=== PATIENT | female | born 1955 | race Caucasian/White ===

== ENCOUNTER 2024-08-27 20:22 | Emergency (ER) | payer MEDICARE, OTHER ==
[~2024-08-27] VITALS: Ht 160 cm; Wt 45.4 kg
[2024-08-27 21:08] LABS: BASOPHILS PERCENT AUTO 0 % (0-2); EOSINOPHILS ABSOLUTE AUTO 0.09 K/mm3 (0.00-0.68); EOSINOPHILS PERCENT AUTO 2 % (0-6); Hematocrit 32.1 % (33.0-51.0); IMMATURE GRAN ABSOLUTE AUTO 0.01 K/mm3 (0.00-0.10); IMMATURE GRAN PERCENT AUTO 0 % (0-1); LYMPHOCYTES ABSOLUTE AUTO 0.94 K/mm3 (0.84-5.20); LYMPHOCYTES PERCENT AUTO 22 % (21-46); MONOCYTES ABSOLUTE AUTO 0.35 K/mm3 (0.16-1.47); MONOCYTES PERCENT AUTO 8 % (4-13); Mean Corpuscular HGB 32.4 pg (26.0-34.0); Mean Corpuscular HGB Conc 34.3 g/dL (31.5-36.5); Mean Corpuscular Volume 94 fL (80-100); Mean Platelet Volume 8.8 fL (9.1-12.4); NEUTROPHILS PERCENT AUTO 67 % (41-73); Platelet Count 269 K/mm3 (150-400); RDW Standard Deviation 45.3 fL (35.1-46.3); White Blood Cell Count 4.19 K/mm3 (4.00-11.30)
[2024-08-27 21:12] LABS: Source, Urine Straight Cath
[2024-08-27 21:24] LABS: Appearance, Urine Clear (Clear); Bilirubin, Urine Neg (Neg); Blood, Urine Neg (Neg); Color, Urine Yellow (P-Yellow); Glucose Qualitative, Urine Neg (Neg); Ketones, Urine Neg (Neg); Leukocyte Esterase, Urine Neg (Neg); Nitrite, Urine Neg (Neg); Protein, Urine Neg (Neg); Urobilinogen, Urine NORM (Normal)
[2024-08-27 21:28] LABS: Albumin, Blood 3.9 g/dL (3.4-5.0); Albumin/Globulin Ratio 1.4 (0.8-1.8); Bilirubin, Total 0.3 mg/dL (0.1-1.0); Bun/Creatinine Ratio 11.2 (12.0-20.0); Calcium, Blood 8.8 mg/dL (8.5-10.1); Creatinine, Blood 0.98 mg/dL (0.40-1.00); Globulin, Blood 2.7 g/dL (2.2-4.0); Magnesium, Blood 1.9 mg/dL (1.6-2.4); Potassium, Blood 3.7 mmol/L (3.5-5.5); Total Protein, Blood 6.6 g/dL (6.4-8.2)
[2024-08-27] MEDS ORDERED: Lacosamide 50 MG Tablet PO ONE (21:55)
[2024-08-27] MEDS ORDERED: LamoTRIgine 25 MG Tab PO ONE (21:55)
[2024-08-27] MEDS ORDERED: LamoTRIgine 100 MG Tab PO ONE (21:55)
[2024-08-27] MEDS ORDERED: Ketorolac Tromethamine 15mg Vial IM ONE (23:15)
[2024-08-27] MEDS ORDERED: Ketorolac Tromethamine 15mg Vial IV ONE (23:30)
[2024-09-23] MEDS ORDERED: Acetaminophen650 M1 PO (13:29)
[2024-09-23] MEDS ORDERED: ACET500 PO (13:31)
[2024-09-23] MEDS ORDERED: Aspir 8181 MG PO (13:31)
[2024-09-23] MEDS ORDERED: Magic Bullet10 MG PR (13:32)
[2024-09-23] MEDS ORDERED: Calcium Carbon500 MG PO (13:33)
[2024-09-23] MEDS ORDERED: ZYRTEC10 M2 PO (13:34)
[2024-09-23] MEDS ORDERED: VIMPAT PO (13:35)
[2024-09-23] MEDS ORDERED: LAMO100 PO (13:36)
[2024-09-23] MEDS ORDERED: LOSA25 PO (13:37)
[2024-09-23] MEDS ORDERED: SENNA LAXATIVE8.6 MG PO (13:38)
== END 2024-08-28 00:25 ==
LOC: EDBD 20:22 → ER 20:22
PROVIDERS: Student in an Organized Health Care Education/Training Program
DX: R56.9 Unspecified convulsions (principal)
CPT/HCPCS: 70450; 80053; 81003; 83735; 85025; 93005; 93010; 96374; 99285-25; A9270; J1885

== ENCOUNTER → 2024-08-28 | Outpatient (CLI) | payer MEDICARE, OTHER ==
[~2024-08-28] MED LIST: ASPI81CH PO; Acetaminophen325 M1 PO; BISA10S PR; BUSP10 PO; CYMBALTA30 M1 PO; Calcium Carbon500 MG PO; Crestor40 MG PO; LACO50TA2 PO; LACT10SY PO; LAMO25 PO; LEVSOD25 PO; LOSA50 PO; ONFI10 MG PO; PANT40 PO; ZYRTEC10 M1 PO
[2024-08-28 16:01] LABS: Source, Urine Voided
[2024-08-28 17:33] LABS: Appearance, Urine Clear (Clear); Bilirubin, Urine Neg (Neg); Blood, Urine Neg (Neg); Glucose Qualitative, Urine Neg (Neg); Ketones, Urine Neg (Neg); Leukocyte Esterase, Urine Neg (Neg); Nitrite, Urine Neg (Neg); Protein, Urine Neg (Neg); Specific Gravity, Urine 1.005 (1.003-1.022); Urobilinogen, Urine NORM (Normal)
[2024-08-28 17:43] LABS: Color, Urine Pale Yellow (P-Yellow)
== END | disposition home or self-care (01) ==
LOC: LAB 15:59 → LAB SHORT 15:59
PROVIDERS: Student in an Organized Health Care Education/Training Program
DX: N39.0 Urinary tract infection, site not specified (principal)
CPT/HCPCS: 81003; 87086

== ENCOUNTER 2024-09-02 18:40 | Emergency (ER) | payer MEDICARE, OTHER ==
[~2024-09-02] VITALS: Ht 157.5 cm; Wt 49.9 kg
[2024-09-02] MEDS ORDERED: OLANZapine 10 MG Vial IM ONE (19:25)
[2024-09-02] MEDS ORDERED: BISA10S PR (19:33)
[2024-09-02] MEDS ORDERED: ASPI81CH PO (19:33)
[2024-09-02] MEDS ORDERED: Acetaminophen325 M1 PO (19:33)
[2024-09-02] MEDS ORDERED: BUSP10 PO (19:34)
[2024-09-02] MEDS ORDERED: Calcium Carbon500 MG PO (19:34)
[2024-09-02] MEDS ORDERED: ONFI10 MG PO (19:35)
[2024-09-02] MEDS ORDERED: ZYRTEC10 M1 PO (19:35)
[2024-09-02] MEDS ORDERED: CYMBALTA30 M1 PO (19:35)
[2024-09-02] MEDS ORDERED: LAMO25 PO (19:36)
[2024-09-02] MEDS ORDERED: LACO50TA2 PO (19:36)
[2024-09-02] MEDS ORDERED: LACT10SY PO (19:36)
[2024-09-02] MEDS ORDERED: Crestor40 MG PO (19:37)
[2024-09-02] MEDS ORDERED: PANT40 PO (19:37)
[2024-09-02] MEDS ORDERED: LEVSOD25 PO (19:37)
[2024-09-02] MEDS ORDERED: LOSA50 PO (19:37)
[2024-09-02 20:01] LABS: Source, Urine Clean Catch
[2024-09-02 20:07] LABS: Appearance, Urine Clear (Clear); Bilirubin, Urine Neg (Neg); Blood, Urine Neg (Neg); Color, Urine Yellow (P-Yellow); Glucose Qualitative, Urine Neg (Neg); Ketones, Urine 1+ (Neg); Leukocyte Esterase, Urine Neg (Neg); Nitrite, Urine Neg (Neg); Protein, Urine Neg (Neg); Urobilinogen, Urine NORM (Normal)
[2024-09-02 20:36] LABS: BASOPHILS PERCENT AUTO 0 % (0-2); EOSINOPHILS ABSOLUTE AUTO 0.04 K/mm3 (0.00-0.68); EOSINOPHILS PERCENT AUTO 1 % (0-6); Hematocrit 33.8 % (33.0-51.0); Hemoglobin 11.6 g/dL (11.5-16.0); IMMATURE GRAN ABSOLUTE AUTO 0.02 K/mm3 (0.00-0.10); IMMATURE GRAN PERCENT AUTO 0 % (0-1); LYMPHOCYTES ABSOLUTE AUTO 1.29 K/mm3 (0.84-5.20); LYMPHOCYTES PERCENT AUTO 26 % (21-46); MONOCYTES ABSOLUTE AUTO 0.32 K/mm3 (0.16-1.47); MONOCYTES PERCENT AUTO 7 % (4-13); Mean Corpuscular HGB Conc 34.3 g/dL (31.5-36.5); Mean Corpuscular Volume 96 fL (80-100); Mean Platelet Volume 9.3 fL (9.1-12.4); NEUTROPHILS ABSOLUTE AUTO 3.23 K/mm3 (1.96-9.15); NEUTROPHILS PERCENT AUTO 66 % (41-73); Platelet Count 271 K/mm3 (150-400); RDW Coefficient Variation 13.4 % (11.7-14.2); RDW Standard Deviation 47.9 fL (35.1-46.3); Red Blood Cell Count 3.52 M/mm3 (3.80-5.20)
[2024-09-02 21:05] LABS: Thyroxine (T4) 9.4 ug/dL (4.8-13.9)
[2024-09-02 21:11] LABS: Albumin, Blood 4.2 g/dL (3.4-5.0); Albumin/Globulin Ratio 1.4 (0.8-1.8); Bilirubin, Total 0.5 mg/dL (0.1-1.0); Bun/Creatinine Ratio 11.5 (12.0-20.0); Calcium, Blood 9.6 mg/dL (8.5-10.1); Creatinine, Blood 0.78 mg/dL (0.40-1.00); Globulin, Blood 2.9 g/dL (2.2-4.0); Potassium, Blood 4.4 mmol/L (3.5-5.5); Thyroid Stimulating Hormone 1.57 uIU/mL (0.360-4.800); Total Protein, Blood 7.1 g/dL (6.4-8.2)
[2024-09-03] MEDS ORDERED: OLANZapine 10 MG Tab PO ONE (08:05)
== END 2024-09-03 10:46 | disposition home or self-care (01) ==
LOC: ER 18:40
PROVIDERS: Student in an Organized Health Care Education/Training Program
DX: R41.82 Altered mental status, unspecified (principal); E87.1 Hypo-osmolality and hyponatremia; Z88.0 Allergy status to penicillin; G40.909 Epilepsy, unspecified, not intractable, without status epilepticus; E03.9 Hypothyroidism, unspecified; E78.5 Hyperlipidemia, unspecified
CPT/HCPCS: 70450; 71045; 80053; 81003; 82140; 84436; 84443; 85025; 93005; 93010; 96372; 99285-25; A9270

== ENCOUNTER 2024-09-03 12:27 | Observation (INO) | payer MEDICARE, OTHER ==
[~2024-09-03] VITALS: Ht 167.6 cm; Wt 56.7 kg
[2024-09-03] MEDS ORDERED: OLANZapine 5 MG Tab PO ONE ×2 (14:10→17:50)
[2024-09-03] MEDS ORDERED: Acetaminophen 325 MG TABLET PO PRN (23:35)
[2024-09-03] MEDS ORDERED: Melatonin 5 MG Tablet PO SCH (23:55)
[2024-09-03] MEDS ORDERED: LamoTRIgine 25 MG Tab PO SCH (23:55)
[2024-09-04] MEDS ORDERED: LamoTRIgine 100 MG Tab PO SCH ×2 (00:12→09:00)
[2024-09-04] MEDS ORDERED: Levothyroxine Sodium 0.025 MG Tab PO SCH (06:00)
[2024-09-04] MEDS ORDERED: DULoxetine HCL 30 MG Cap DR PO SCH (09:00)
[2024-09-04] MEDS ORDERED: Lacosamide 50 MG Tablet PO SCH ×2 (09:00→21:00)
[2024-09-04] MEDS ORDERED: LamoTRIgine 25 MG Tab PO SCH (09:00)
[2024-09-04] MEDS ORDERED: BusPIRone HCl 10 MG Tab PO SCH (09:00)
[2024-09-04] MEDS ORDERED: Acetaminophen 325 MG TABLET PO PRN (18:25)
[2024-09-04] MEDS ORDERED: FLU VACC TS2024-25(6MOS UP)/PF 45 MCG/0.5 ML SYRINGE IM SCH (18:25)
[2024-09-04] MEDS ORDERED: OLANZapine ODT 5 MG Tab MM PRN (18:30)
[2024-09-04 23:06] VITALS: BP 147/90
--- NOTE | 2024-09-05 01:44 | NUR ---
SHIFT SUMMARY/REPORT RECEIVED OVER THE PHONE FROM DEEP FAT COOK FRYEULOGIO KEYES @[id number]. PT ARRIVED TO [facility] RM#[id number] @2300 IN A W/C, TRANSPORTED BY TWO ER STAFF. PT IS 1-PERSON ASSIST FROM W/C TO HOSPITAL BED. PT DID NOT HAVE ANY BELONINGS WITH HER. PT WEARING HOSPITAL GOWN WHEN ARRIVED. ADMISSION ASSESSMENT COMPLETED BY CHARGE NURSE ARIANNA. SKIN ASSESSMENT COMPLETED WITH RIPENING ROOM ATTENDANT LISA AND THIS TALENT DIRECTOR. UNABLE TO COMPLETE HEALTH HX NOR MEDICATION RECONCILIATION DUE TO PT IS NOT ABLE TO REMEMBER AND PROVIDE HX. D/T PT IS A&O X1-2 TO PERSON AND SELF. PT STATES " I DON'T REMEMBER, [place], [place], PEOPLE ARE NICE," WHEN ASKING LOCATION/ORIENTATION QUESTION. PT IS ON RA, HAS NO IV ACCESS AT THIS TIME. PT DENIES PAIN AND DISCOMFORT DURING THIS SHIFT. EDUCATED BED MACHINE OPERATOR LIGHT. BED AT THE LOWEST POSITION. BED ALARM FOR SAFETY.
[2024-09-05 03:51] VITALS: BP 134/81
[2024-09-05 07:23] VITALS: BP 151/94
[2024-09-05] MEDS ORDERED: Enoxaparin 40 MG/0.4 ML SYR SC SCH (09:00)
--- NOTE | 2024-09-05 18:33 | NUR ---
SHIFT SUMMARY: PT A&O TO SELF. PT VERY FEARFUL AND ANXIOUS SEVERAL TIMES THIS SHIFT. MEDICATED PER EMAR WITH PO ZYPREXA WITH GOOD EFFECT. COGNITIVE EVAL COMPLETED WITH A SCORE OF 5/30. PT DAUGHTER CALLED ASKING TO SPEAK WITH STAFF/DOCTOR. ALLISON. 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 MEDICATED PER EMAR FOR SEIZURES. SB ASSIST IN ROOM FOR TRANSFERS. CALL LIGHT IN REACH. BED IN LOWEST POSITION.
[2024-09-05 19:33] VITALS: BP 143/79
[2024-09-06 01:28] LABS: Source, Urine Clean Catch
[2024-09-06 01:49] LABS: Appearance, Urine Clear (Clear); Bilirubin, Urine Neg (Neg); Blood, Urine Neg (Neg); Color, Urine Pale Yellow (P-Yellow); Glucose Qualitative, Urine Neg (Neg); Ketones, Urine Neg (Neg); Leukocyte Esterase, Urine 3+ (Neg); Nitrite, Urine Neg (Neg); Protein, Urine Neg (Neg); Urobilinogen, Urine NORM (Normal); pH, Urine 6.5 (5.0-8.0)
[2024-09-06 01:50] LABS: Amorphous Light (0-Heavy); Bacteria Few /hpf; Red Blood Cells, Urine Not Seen /hpf (0-2); Squamous Epithelial Cells Rare /hpf (Few)
--- NOTE | 2024-09-06 03:57 | NUR ---
SHIFT SUMMARY PT IS CONFUSED AND STATES "I'M SCARED, I DON'T KNOW WHERE I AM". LIGHTS AND DOOR OPEN DURING THE NIGHT HRS PER PT REQUEST. ADL'S COMPLETED BY THE PT DURING THE EVENING HRS. PT C/O BACK& NECK PAIN, PRN TYLENOL EFFECTIVE. NO ACUTE EVENTS DURING THIS SHIFT. BED ALARM FOR SAFETY, BED AT THE LOWEST POSITION. REASSURED FOR SAFETY, REORIENTED TO THE HOSPITAL ROOM AND THE STAFF MEMBERS. CONTINUING PT EDUCATION.
[2024-09-06 05:05] VITALS: BP 143/89
[2024-09-06 05:14] LABS: BASOPHILS PERCENT AUTO 0 % (0-2); EOSINOPHILS ABSOLUTE AUTO 0.03 K/mm3 (0.00-0.68); EOSINOPHILS PERCENT AUTO 1 % (0-6); Hematocrit 34.9 % (33.0-51.0); Hemoglobin 11.7 g/dL (11.5-16.0); IMMATURE GRAN ABSOLUTE AUTO 0.02 K/mm3 (0.00-0.10); IMMATURE GRAN PERCENT AUTO 0 % (0-1); LYMPHOCYTES ABSOLUTE AUTO 1.56 K/mm3 (0.84-5.20); LYMPHOCYTES PERCENT AUTO 32 % (21-46); MONOCYTES ABSOLUTE AUTO 0.53 K/mm3 (0.16-1.47); MONOCYTES PERCENT AUTO 11 % (4-13); Mean Corpuscular HGB 32.8 pg (26.0-34.0); Mean Corpuscular HGB Conc 33.5 g/dL (31.5-36.5); Mean Corpuscular Volume 98 fL (80-100); Mean Platelet Volume 8.5 fL (9.1-12.4); NEUTROPHILS ABSOLUTE AUTO 2.76 K/mm3 (1.96-9.15); NEUTROPHILS PERCENT AUTO 56 % (41-73); Platelet Count 268 K/mm3 (150-400); RDW Coefficient Variation 13.9 % (11.7-14.2); RDW Standard Deviation 49.4 fL (35.1-46.3); Red Blood Cell Count 3.57 M/mm3 (3.80-5.20)
[2024-09-06 05:43] LABS: Albumin, Blood 3.9 g/dL (3.4-5.0); Albumin/Globulin Ratio 1.4 (0.8-1.8); Bilirubin, Total 0.4 mg/dL (0.1-1.0); Bun/Creatinine Ratio 15.9 (12.0-20.0); Calcium, Blood 9.6 mg/dL (8.5-10.1); Creatinine, Blood 0.76 mg/dL (0.40-1.00); Globulin, Blood 2.8 g/dL (2.2-4.0); Potassium, Blood 4.1 mmol/L (3.5-5.5); Total Protein, Blood 6.7 g/dL (6.4-8.2)
[2024-09-06 07:25] VITALS: BP 150/85
[2024-09-06] MEDS ORDERED: Cephalexin Monohydrate 500 MG Cap PO SCH (15:00)
[2024-09-06 16:48] VITALS: BP 163/90
--- NOTE | 2024-09-06 17:56 | NUR ---
SHIFT SUMMARY; PT REMAINS ORIENTED TO SELF WITH AM ASSESSMENT. APPEARED TO HAVE MORE KNOWLEDGE OF LOCATION AND SITUATION THROUGHOUT SHIFT. PT INDEPENDENT IN ROOM AND HALLWAY THIS SHIFT. DR. COOPER CALLED THIS RN ON [facility] STATING DAUGHTER WAS UPSET PT WAS NOT RECEIVING HOME DOSE OF CLOBAZAM. ATTEMPTED TO CALL [facility] FOR PT SISTER NAME AND NUMBER. VOICEMAIL LEFT X2 WITH NO RETURN CALL AT THIS TIME. EEG ORDERED FOR EPILEPSY. DISSOLVABLE ZYPREXA GIVEN THIS SHIFT X1. CALL LIGHT IN REACH. BED IN LOWEST POSITION.
[2024-09-06 19:44] VITALS: BP 135/80
--- NOTE | 2024-09-07 04:29 | NUR ---
SHIFT SUMMARY PATIENT HAD NO ACUTE CHANGES. AXO X 2 AND INDEPENDENT IN ROOM/HALLWAY. NO IV ACCESS. DENIES CHEST PAIN, SOB, AND N/V. REPORTED BACK PAIN X ONE AND TYLENOL 650 MG GIVEN PER EMAR. HEATING PAD ALSO PROVIDED PER PATIENT REQUEST. VSS/AFEBRILE. COOPERATIVE WITH CARE. CALL LIGHT IN REACH. BED IN LOWEST POSITION. WILL CONTINUE TO MONITOR UNTIL DAY SHIFT NURSE ASSUMES CARE.
[2024-09-07 04:59] VITALS: BP 119/74
[2024-09-07 07:22] VITALS: BP 142/83
--- NOTE | 2024-09-07 12:15 | NUR ---
called [facility] and spoke with Laya about bringing in her home medication clobazam when she comes in to eval her to return, she was agreeable.
[2024-09-07] MEDS ORDERED: MELATONIN5 M1 PO (14:41)
[2024-09-07] MEDS ORDERED: ZYPREXA513 PO (14:43)
--- NOTE | 2024-09-07 15:00 | NUR ---
pt has been discharged back to [place], they sent a wagon driver to pick her up, no new meds to call in, she has all her belongings, left via wheelchair with record press tender in attendence.
--- NOTE | 2024-09-07 15:18 | NUR ---
pt has been accepted back at [facility], she had her EEG, left via wheelchair with audio/video technician to transport. no iv access, she has all her belongings.
--- NOTE | 2024-09-07 17:16 | NUR ---
pt up ad fanny in room, ambulated out in fischer, gait steady, she is a/ox 2-3, easily redirectable, pleasant and cooperative with care, follows commands well, lungs are clear in [place], a bit dim in bases, resp even and unlabored, on r/a, no cough noted, hrr, no edema noted, btx4, abd flat soft nontender voids without diff, skin c/w/d, maew, bijal, call light in reach.
[2024-09-23] MEDS ORDERED: Acetaminophen650 M1 PO (13:29)
[2024-09-23] MEDS ORDERED: ACET500 PO (13:31)
[2024-09-23] MEDS ORDERED: Aspir 8181 MG PO (13:31)
[2024-09-23] MEDS ORDERED: Magic Bullet10 MG PR (13:32)
[2024-09-23] MEDS ORDERED: Calcium Carbon500 MG PO (13:33)
[2024-09-23] MEDS ORDERED: ZYRTEC10 M2 PO (13:34)
[2024-09-23] MEDS ORDERED: VIMPAT PO (13:35)
[2024-09-23] MEDS ORDERED: LAMO100 PO (13:36)
[2024-09-23] MEDS ORDERED: PANT40 PO (13:37)
[2024-09-23] MEDS ORDERED: LOSA25 PO (13:37)
[2024-09-23] MEDS ORDERED: Crestor40 MG PO (13:37)
[2024-09-23] MEDS ORDERED: SENNA LAXATIVE8.6 MG PO (13:38)
== END 2024-09-07 15:20 | disposition home or self-care (01) ==
LOC: ER 12:27 → ERHOLD 12:28 → MEDS 09-04 12:28 → ER 09-04 12:28 → ERHOLD 09-04 12:28 → MEDS 09-04 23:01 → ERHOLD 09-04 23:01 → ENPENDDIS 09-07 12:59 → MEDS 09-07 15:20
PROVIDERS: Internal Medicine; ADMIT Student in an Organized Health Care Education/Training Program
DX: F03.918 Unspecified dementia, unspecified severity, with other behavioral disturbance (principal); E87.1 Hypo-osmolality and hyponatremia; N39.0 Urinary tract infection, site not specified; I10 Essential (primary) hypertension; E78.5 Hyperlipidemia, unspecified; E03.9 Hypothyroidism, unspecified; R73.03 Prediabetes; G40.909 Epilepsy, unspecified, not intractable, without status epilepticus; Z66 Do not resuscitate; Z88.0 Allergy status to penicillin; Z79.82 Long term (current) use of aspirin; Z79.890 Hormone replacement therapy; Z79.899 Other long term (current) drug therapy
CPT/HCPCS: 36415; 70551; 80053; 81001; 82947; 83930; 83935; 85025; 86592; 87086; 95819; 96372; 97129; 97130; 97165; 99285-25; A9270; G0378; J1650

== ENCOUNTER → 2024-09-25 | Outpatient (CLI) | payer MEDICARE, OTHER ==
[~2024-09-25] MED LIST changes: +ACET500 PO; +Acetaminophen650 M1 PO; +Aspir 8181 MG PO; +LAMO100 PO; +LOSA25 PO; +MELATONIN5 M1 PO; +Magic Bullet10 MG PR; +SENNA LAXATIVE8.6 MG PO; +VIMPAT PO; +ZYPREXA513 PO; +ZYRTEC10 M2 PO
[2024-09-25 15:37] LABS: Source, Urine Voided
[2024-09-25 16:51] LABS: Appearance, Urine Clear (Clear); Bilirubin, Urine Neg (Neg); Blood, Urine Neg (Neg); Color, Urine Yellow (P-Yellow); Glucose Qualitative, Urine Neg (Neg); Ketones, Urine 1+ (Neg); Leukocyte Esterase, Urine Neg (Neg); Nitrite, Urine Neg (Neg); Protein, Urine Neg (Neg); Urobilinogen, Urine NORM (Normal)
== END | disposition home or self-care (01) ==
LOC: LAB SHORT 15:35 → LAB 15:35
PROVIDERS: Student in an Organized Health Care Education/Training Program
DX: N39.0 Urinary tract infection, site not specified (principal)
CPT/HCPCS: 81003; 87086

== ENCOUNTER → 2025-01-31 | Outpatient (CLI) | payer OTHER ==
[2025-02-01 13:53] LABS: Source, Urine Clean Catch
[2025-02-01 15:34] LABS: Appearance, Urine Clear (Clear); Bilirubin, Urine Neg (Neg); Blood, Urine Neg (Neg); Glucose Qualitative, Urine Neg (Neg); Ketones, Urine Neg (Neg); Leukocyte Esterase, Urine Neg (Neg); Nitrite, Urine Neg (Neg); Protein, Urine Neg (Neg); Urobilinogen, Urine NORM (Normal)
[2025-02-01 15:41] LABS: Color, Urine Pale Yellow (P-Yellow)
== END ==
LOC: LAB SHORT 16:00 → LAB 16:00
PROVIDERS: Family Medicine
DX: N39.0 Urinary tract infection, site not specified (principal)
CPT/HCPCS: 81003; 87086

== ENCOUNTER 2025-03-24 15:43 | Emergency (ER) | payer MEDICARE, OTHER ==
[~2025-03-24] VITALS: Ht 157.5 cm; Wt 44.5 kg
[2025-03-24] MEDS ORDERED: Benzonatate 100 MG Cap PO ONE (16:30)
[2025-03-24] MEDS ORDERED: Dextromethorphan Polistirix 30 MG/5 ML 5ML Oral Syringe PO ONE (17:05)
[2025-03-24] MEDS ORDERED: Chlorpheniramine/Hydroc Polistir 5 ML UDC PO ONE (18:50)
== END 2025-03-24 20:37 | disposition home or self-care (01) ==
LOC: ER 15:43
DX: R05.9 Cough, unspecified (principal); E78.5 Hyperlipidemia, unspecified; I10 Essential (primary) hypertension; Z79.899 Other long term (current) drug therapy; Z79.82 Long term (current) use of aspirin; Z88.0 Allergy status to penicillin; Z88.5 Allergy status to narcotic agent
CPT/HCPCS: 71046; 99283-25; A9270

== ENCOUNTER 2025-04-05 21:10 | Emergency (ER) | payer MEDICARE, OTHER ==
[~2025-04-05] VITALS: Ht 162.6 cm; Wt 49.9 kg
[2025-04-05 21:45] LABS: BASOPHILS PERCENT AUTO 0 % (0-2); EOSINOPHILS PERCENT AUTO 2 % (0-6); Hematocrit 34.2 % (33.0-51.0); Hemoglobin 11.6 g/dL (11.5-16.0); IMMATURE GRAN ABSOLUTE AUTO 0.01 K/mm3 (0.00-0.10); IMMATURE GRAN PERCENT AUTO 0 % (0-1); LYMPHOCYTES ABSOLUTE AUTO 0.88 K/mm3 (0.84-5.20); LYMPHOCYTES PERCENT AUTO 17 % (21-46); MONOCYTES PERCENT AUTO 6 % (4-13); Mean Corpuscular HGB 32.2 pg (26.0-34.0); Mean Corpuscular HGB Conc 33.9 g/dL (31.5-36.5); Mean Corpuscular Volume 95 fL (80-100); Mean Platelet Volume 8.4 fL (9.1-12.4); NEUTROPHILS ABSOLUTE AUTO 3.84 K/mm3 (1.96-9.15); NEUTROPHILS PERCENT AUTO 75 % (41-73); Platelet Count 262 K/mm3 (150-400); RDW Coefficient Variation 14.7 % (11.7-14.2); RDW Standard Deviation 51.3 fL (35.1-46.3); White Blood Cell Count 5.13 K/mm3 (4.00-11.30)
[2025-04-05 22:07] LABS: Source, Urine Clean Catch
[2025-04-05 22:15] LABS: Alanine Aminotransfer (ALT/SGP 16 U/L (12-78); Albumin/Globulin Ratio 1.3 (0.8-1.8); Alk Phos 67 U/L (50-136); Anion Gap 14 mmol/L (3-11); Aspartate Aminotrans (AST/SGOT 14 U/L (12-37); Bilirubin, Total 0.2 mg/dL (0.1-1.0); Blood Urea Nitrogen 14 mg/dL (8-24); Bun/Creatinine Ratio 15.3 (12.0-20.0); CO2, Blood 23 mmol/L (21-32); Calcium, Blood 9.3 mg/dL (8.5-10.1); Chloride, Blood 97 mmol/L (98-108); Creatinine, Blood 0.92 mg/dL (0.40-1.00); Ethanol (Alcohol), Blood, Med <3 mg/dL; Glomerular Filtration Rate 67 (60-); Glucose, Blood 144 mg/dL (70-99); Potassium, Blood 3.3 mmol/L (3.5-5.5); Sodium, Blood 131 mmol/L (136-145)
[2025-04-05 22:15] LABS: Bilirubin, Urine Neg (Neg); Blood, Urine 1+ (Neg); Glucose Qualitative, Urine Neg (Neg); Ketones, Urine Neg (Neg); Leukocyte Esterase, Urine Neg (Neg); Nitrite, Urine Neg (Neg); Protein, Urine 3+ (Neg); Urobilinogen, Urine NORM (Normal)
[2025-04-05 22:30] LABS: U Amphetamine Screen Not Detected; U Barbituate Screen Not Detected; U Benzodiazapine Screen DETECTED; U Buprenorphine Screen Not Detected; U Cannabinoids Screen Not Detected; U Cocaine Screen Not Detected; U Methadone Screen Not Detected; U Methamphetamine Screen Not Detected; U Opiates Screen Not Detected; U Oxycodone Screen Not Detected; U Phencyclidine Screen Not Detected
[2025-04-05 22:31] LABS: Appearance, Urine Clear (Clear); Color, Urine Pale Yellow (P-Yellow)
[2025-04-05 22:32] LABS: Amorphous Light (0-Heavy); Bacteria Few /hpf; Red Blood Cells, Urine 0-2 /hpf (0-2); Squamous Epithelial Cells Few /hpf (Few); White Blood Cells, Urine 0-2 /hpf (0-5)
[2025-04-06] MEDS ORDERED: Acetaminophen 500 MG Tab PO ONE (00:50)
[2025-04-06] MEDS ORDERED: Ketorolac Tromethamine 15mg Vial IV ONE (02:50)
[2025-04-17] MEDS ORDERED: BENZ100A PO (20:58)
== END 2025-04-06 04:26 | disposition home or self-care (01) ==
LOC: ER 21:10
PROVIDERS: Student in an Organized Health Care Education/Training Program
DX: R56.9 Unspecified convulsions (principal); E78.5 Hyperlipidemia, unspecified; E03.9 Hypothyroidism, unspecified; I10 Essential (primary) hypertension; Z86.59 Personal history of other mental and behavioral disorders; Z79.899 Other long term (current) drug therapy; Z88.0 Allergy status to penicillin; Z88.5 Allergy status to narcotic agent
CPT/HCPCS: 70450; 80053; 80320; 81001; 82947; 85025; 93005; 93010; 96374; 99285-25; A9270; J1885

== ENCOUNTER 2025-06-22 18:00 | Emergency (ER) | payer MEDICARE, OTHER ==
[~2025-06-22] VITALS: Ht 162.6 cm; Wt 49.9 kg
[~2025-06-22 18:00] MED LIST changes: +BENZ100A PO
[2025-06-22 19:06] LABS: Source, Urine Voided
[2025-06-22 19:34] LABS: Bilirubin, Urine Neg (Neg); Color, Urine Yellow (P-Yellow); Glucose Qualitative, Urine Neg (Neg); Ketones, Urine 3+ (Neg); Leukocyte Esterase, Urine 1+ (Neg); Protein, Urine 1+ (Neg); Specific Gravity, Urine 1.020 (1.003-1.022); Urobilinogen, Urine NORM (Normal)
[2025-06-22] MEDS ORDERED: Trimethoprim/Sulfamethoxazole DS Tab PO ONE (20:10)
[2025-06-22] MEDS ORDERED: Seroquel Xr50 MG PO (21:26)
[2025-06-22] MEDS ORDERED: Bactrim Ds Tab1 EACH PO (21:26)
== END 2025-06-22 23:00 | disposition home or self-care (01) ==
LOC: ER 18:00
PROVIDERS: Emergency Medicine
DX: R45.1 Restlessness and agitation (principal); N39.0 Urinary tract infection, site not specified
CPT/HCPCS: 81001; 87086; 99285; A9270

== ENCOUNTER 2025-06-27 08:39 | Emergency (ER) | payer MEDICARE, OTHER ==
[~2025-06-27] VITALS: Ht 160 cm; Wt 47.6 kg
[~2025-06-27 08:39] MED LIST changes: +Bactrim Ds Tab1 EACH PO; +Seroquel Xr50 MG PO
[2025-06-27 10:08] LABS: BASOPHILS ABSOLUTE AUTO 0.01 K/mm3 (0.00-0.23); BASOPHILS PERCENT AUTO 0 % (0-2); EOSINOPHILS ABSOLUTE AUTO 0.10 K/mm3 (0.00-0.68); EOSINOPHILS PERCENT AUTO 2 % (0-6); Hematocrit 33.6 % (33.0-51.0); Hemoglobin 11.5 g/dL (11.5-16.0); IMMATURE GRAN ABSOLUTE AUTO 0.02 K/mm3 (0.00-0.10); IMMATURE GRAN PERCENT AUTO 0 % (0-1); LYMPHOCYTES ABSOLUTE AUTO 0.74 K/mm3 (0.84-5.20); LYMPHOCYTES PERCENT AUTO 13 % (21-46); MONOCYTES ABSOLUTE AUTO 0.35 K/mm3 (0.16-1.47); MONOCYTES PERCENT AUTO 6 % (4-13); Mean Corpuscular HGB Conc 34.2 g/dL (31.5-36.5); Mean Corpuscular Volume 94 fL (80-100); NEUTROPHILS ABSOLUTE AUTO 4.50 K/mm3 (1.96-9.15); NEUTROPHILS PERCENT AUTO 79 % (41-73); NRBC ABSOLUTE 0.00 K/mm3 (0.00-0.02); NRBC Auto 0.0 /100 WBC (0.0-0.2); Platelet Count 362 K/mm3 (150-400); RDW Coefficient Variation 12.4 % (11.7-14.2); RDW Standard Deviation 42.9 fL (35.1-46.3)
[2025-06-27 10:30] LABS: Alanine Aminotransfer (ALT/SGP 17.0 U/L (12-78); Albumin, Blood 3.4 g/dL (3.4-5.0); Albumin/Globulin Ratio 1.0 (0.8-1.8); Anion Gap 11.0 mmol/L (3-11); Aspartate Aminotrans (AST/SGOT 23.0 U/L (12-37); Bilirubin, Total 0.3 mg/dL (0.1-1.0); Blood Urea Nitrogen 9.0 mg/dL (8-24); CO2, Blood 24.0 mmol/L (21-32); Calcium, Blood 8.3 mg/dL (8.5-10.1); Chloride, Blood 98.0 mmol/L (98-108); Creatinine, Blood 0.78 mg/dL (0.40-1.00); Globulin, Blood 3.3 g/dL (2.2-4.0); Glucose, Blood 102.0 mg/dL (70-99); Magnesium, Blood 1.9 mg/dL (1.6-2.4); Phosphorus, Blood 2.1 mg/dL (2.5-4.9); Potassium, Blood 3.7 mmol/L (3.5-5.5); Sodium, Blood 129.0 mmol/L (136-145); Total Protein, Blood 6.7 g/dL (6.4-8.2)
== END 2025-06-27 14:43 | disposition home or self-care (01) ==
LOC: ER 08:39
PROVIDERS: Physician Assistant
DX: R45.6 Violent behavior (principal); F03.90 Unspecified dementia, unspecified severity, without behavioral disturbance, psychotic disturbance, mood disturbance, and anxiety; Z66 Do not resuscitate; Z88.0 Allergy status to penicillin; Z88.5 Allergy status to narcotic agent; Z79.82 Long term (current) use of aspirin; Z79.899 Other long term (current) drug therapy
CPT/HCPCS: 80053; 82140; 83735; 84100; 85025; A9270

== ENCOUNTER 2025-06-27 19:10 | Observation (INO) | payer MEDICARE, OTHER ==
[~2025-06-27] VITALS: Ht 157.5 cm; Wt 46.3 kg
[~2025-06-27 19:10] MED LIST changes: +LACOSAMIDE150 MG PO; -LAMO100 PO; -LAMO25 PO; +Lamictal200 MG PO; -VIMPAT PO
[2025-06-27] MEDS ORDERED: Bacitracin Zinc Oint 1GRAM UD Packet TOP ONE (21:00)
[2025-06-27 22:46] LABS: Source, Urine Clean Catch
[2025-06-27] MEDS ORDERED: Morphine Sulfate 20 MG/1ML 1 ML Oral Syringe SL ONE (22:55)
[2025-06-28] MEDS ORDERED: Ondansetron HCl 2 MG / ML 2ML Vial IV PRN (00:15)
[2025-06-28] MEDS ORDERED: Morphine Sulfate 20 MG/1ML 1 ML Oral Syringe PO PRN (00:50)
[2025-06-28 01:33] LABS: Bilirubin, Urine Neg (Neg); Color, Urine Yellow (P-Yellow); Glucose Qualitative, Urine Neg (Neg); Ketones, Urine 2+ (Neg); Leukocyte Esterase, Urine Neg (Neg); Protein, Urine Neg (Neg); Specific Gravity, Urine 1.010 (1.003-1.022); Urobilinogen, Urine NORM (Normal)
[2025-06-28 01:58] LABS: Red Blood Cells, Urine 0-2 /hpf (0-2); White Blood Cells, Urine 0-2 /hpf (0-5)
[2025-06-28 02:47] LABS: BASOPHILS ABSOLUTE AUTO 0.00 K/mm3 (0.00-0.23); BASOPHILS PERCENT AUTO 0 % (0-2); EOSINOPHILS ABSOLUTE AUTO 0.12 K/mm3 (0.00-0.68); EOSINOPHILS PERCENT AUTO 2 % (0-6); Hematocrit 35.6 % (33.0-51.0); Hemoglobin 12.0 g/dL (11.5-16.0); IMMATURE GRAN ABSOLUTE AUTO 0.02 K/mm3 (0.00-0.10); IMMATURE GRAN PERCENT AUTO 0 % (0-1); LYMPHOCYTES ABSOLUTE AUTO 1.32 K/mm3 (0.84-5.20); LYMPHOCYTES PERCENT AUTO 21 % (21-46); MONOCYTES ABSOLUTE AUTO 0.40 K/mm3 (0.16-1.47); MONOCYTES PERCENT AUTO 6 % (4-13); Mean Corpuscular HGB Conc 33.7 g/dL (31.5-36.5); Mean Corpuscular Volume 94 fL (80-100); NEUTROPHILS ABSOLUTE AUTO 4.48 K/mm3 (1.96-9.15); NEUTROPHILS PERCENT AUTO 71 % (41-73); NRBC ABSOLUTE 0.00 K/mm3 (0.00-0.02); NRBC Auto 0.0 /100 WBC (0.0-0.2); Platelet Count 395 K/mm3 (150-400); RDW Coefficient Variation 12.4 % (11.7-14.2); RDW Standard Deviation 43.7 fL (35.1-46.3)
[2025-06-28 03:15] VITALS: BP 134/94
[2025-06-28 03:18] LABS: Alanine Aminotransfer (ALT/SGP 18.0 U/L (12-78); Albumin, Blood 3.7 g/dL (3.4-5.0); Albumin/Globulin Ratio 1.0 (0.8-1.8); Anion Gap 12.0 mmol/L (3-11); Aspartate Aminotrans (AST/SGOT 26.0 U/L (12-37); Bilirubin, Total 0.3 mg/dL (0.1-1.0); Blood Urea Nitrogen 7.0 mg/dL (8-24); CO2, Blood 25.0 mmol/L (21-32); Calcium, Blood 8.8 mg/dL (8.5-10.1); Chloride, Blood 97.0 mmol/L (98-108); Creatinine, Blood 0.79 mg/dL (0.40-1.00); Globulin, Blood 3.7 g/dL (2.2-4.0); Glucose, Blood 81.0 mg/dL (70-99); Potassium, Blood 4.2 mmol/L (3.5-5.5); Sodium, Blood 130.0 mmol/L (136-145); Thyroid Stimulating Hormone 0.459 uIU/mL (0.360-4.800); Total Protein, Blood 7.4 g/dL (6.4-8.2)
[2025-06-28 05:24] VITALS: BP 140/84
--- NOTE | 2025-06-28 06:04 | NUR ---
SHIFT SUMMARY 69 YR F ADMITTED ON 06/27/25. DNR. PT ARRIVED TO MEDICAL FLOOR AT APPROX 0330. SHE HAS BEEN MEDICATED FOR PAIN AND ANXIETY AND IS RESTING COMFORTABLY IN BED. 1:1 SITTER FOR PT SAFETY. BED IN LOW POSITION AND CALL LIGHT IN REACH.
[2025-06-28 07:33] VITALS: BP 144/83
--- NOTE | 2025-06-28 09:42 | NUR ---
NOTE: SPOKE WITH PALLIATIVE CARE, THE DEPARTMENT SAID THEY WILL REVIEW CHART AND START ORDERS NECESSARY.
[2025-06-28] MEDS ORDERED: Morphine Sulfate 20 MG/1ML 1 ML Oral Syringe SL PRN (10:30)
--- NOTE | 2025-06-28 11:07 | NUR ---
NOTE: SPOKE WITH DAUGHTER, RUSS, ON THE PHONE AND PROVIDED AN UPDATE.
--- NOTE | 2025-06-28 13:38 | NUR ---
MET WITH PATIENT. SHE WAS ASLEEP BUT ROUSED TO VERBAL STIMULI. PATIENT IS ON HOSPICE WITH [facility]. DISCUSSED CASE WITH TIM FROM [facility]. DISCUSSED CASE WITH DR. SILVER, BSRN, AND SAV TIM. COMFORT CARE ORDERS PLACED. WILL CONTINUE TO PROVIDER SUPPORT.
--- NOTE | 2025-06-28 18:05 | NUR ---
SHIFT SUMMARY PT AOX1-2, SLEPT MOST OF THE SHIFT. MEDICATED PER THE EMAR FOR COMFORT. PT STATES "PAIN ALL OVER". 1:1 SITTER FOR SI. COMFORT CARE ORDERS IN PLACE. SI PRECAUTIONS IN PLACE. PT REPOSITIONS SELF IN BED. UP TO THE BSC WITH 1P ASSIST. PT REFUSED TO LET STAFF COMB HER HAIR AFTER MULTIPLE ATTEMPTS. PLANS IS TO FIND THE PT A NEW PLACEMENT OPTION. CALL LIGHT WITHIN REACH, BED LOCKED AND IN THE LOWEST POSITION. WILL REPORT TO ONCOMING NURSE.
--- NOTE | 2025-06-29 06:14 | NUR ---
SHIFT SUMMARY PT ALERT AND ORIENTED TIMES 1-2. PT ADMITTED FOR DEMENTIA WITH BEHAVIORAL DISTURBANCES. PT IS ON ROOM AIR. DOES NOT HAVE IV. PT IS ON COMFORT CARE. 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 PT IS INCONTINENT OF BOWEL. CM IS WORKING ON DISCHARGE PLAN. CALL LIGHT WITHIN REACH, RAILS TIMES 2, BED IN LOW POSITION.
[2025-06-29] MEDS ORDERED: CLOBAZAM 10MG TAB PO SCH (09:00)
[2025-06-29] MEDS ORDERED: ARTHRITIS PAIN150 GM TOP (09:16)
[2025-06-29] MEDS ORDERED: HYDHCL25 PO (09:17)
[2025-06-29] MEDS ORDERED: LACT10SY PO ×2 (09:19→09:20)
[2025-06-29] MEDS ORDERED: PAIN RELIEF PA1 EACH TOP (09:24)
[2025-06-29] MEDS ORDERED: Ativan1 MG PO (09:24)
[2025-06-29] MEDS ORDERED: QUET25 PO (09:25)
[2025-06-29] MEDS ORDERED: ONDA4ODT MM (09:28)
[2025-06-29] MEDS ORDERED: MORP20L PO (09:29)
[2025-06-29] MEDS ORDERED: Seroquel Xr50 MG PO (09:32)
[2025-06-29] MEDS ORDERED: MILK OF MAGNESIA PO (09:33)
[2025-06-29] MEDS ORDERED: CORTISONE60 GM TOP (09:34)
--- NOTE | 2025-06-29 11:47 | NUR ---
PALLIATIVE CARE VISIT: PT IN BED, SHE IS ABLE TO MAKE HER NEEDS KNOWN. PT STATES SHE HAS TO URINATE. PT UP TO BEDSIDE COMMODE. PT DID WINCE AND SAY "OUCH" WITH MOVEMENT. REQUESTED PRIMARY RN TO GIVE PT TYLENOL FOR PAIN. PAINAD 03/01. SI PRECAUTIONS HAVE BEEN LIFTED. SITTER RELEIVED OF DUTIES. CUTTING AND BONING SUPERVISOR IN TO ASSIST PT. NO S/S OF ANXIETY, SUICIDAL IDEATION, NAUSEA. SYMPTOMS MANAGED AT THIS TIME.
--- NOTE | 2025-06-29 13:20 | NUR ---
Spiritual Care Visit conducted Sary (pt) is awake and upright in bed and welcomes my visit. Pt has a tendency of trailing off and quietly muttering under her breath. Pt is having a bout with cancer and reports this is not the first time. Pt's demeanor is positive and she is inquisitive. She appears to have difficulty keeping her eyes open and focusing. Addressed matters of spirituality and [place], and pt mentions LDS. Pt is easily distracted by atmospheric noises. Offered prayer and pt accepted. Pt is able to articulate that she "enjoys visiting." Expressed my ongoing availibiltiy if she is interested in talking further.
--- NOTE | 2025-06-29 17:44 | NUR ---
SHIFT SUMMARY SI D/C THIS AM. PT A&O TO SELF ONLY AND CONFUSED, BUT EASILY REORIENTABLE. PT COOPRATIVE W/ CARE, TOLERATING PO, VOIDING, AND PAIN MANAGED PER EMAR. LUE CONTUSION REDRESSED. PT CONT TO ATTEMPT TO GET OOB W/ OUT CALLING FOR HELP. BED ALARM ON. CALL LIGHT PLACED WITHIN REACH. PLAN FOR PLACEMENT, SEE CARE COORDINATION NOTES.
--- NOTE | 2025-06-30 06:47 | NUR ---
SHIFT SUMMARY PT ALERT AND ORIENTED TIMES 1-2. PT ADMITTED FOR DEMENTIA WITH BEHAVIORAL DISTURBANCES. PT IS NO LONGER ON SI AND DOES NOT REQUIRE A SITTER. PT IS ON ROOM AIR. DOES NOT HAVE IV. PT IS ON COMFORT CARE. 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 PT IS INCONTINENT OF BOWEL. CM IS WORKING ON DISCHARGE PLAN. CALL LIGHT WITHIN REACH, RAILS TIMES 2, BED IN LOW POSITION.
--- NOTE | 2025-06-30 18:11 | NUR ---
SHIFT SUMMARY PT IMPULSIVE AND CONFUSED T/O SHIFT, BUT EASILY REDIRECTABLE. PAIN AND ANXIETY MANAGED PER EMAR. PT'S SON VISITED AND REMAINS AT THE BEDSIDE AT THIS TIME. CALL LIGHT WITHIN REACH AND BED ALARM ON FOR SAFETY.
--- NOTE | 2025-07-01 05:11 | NUR ---
SHIFT SUMMARY PT ALERT AND ORIENTED TIMES 1-2. PT ADMITTED FOR DEMENTIA WITH BEHAVIORAL DISTURBANCES. PT IS NO LONGER ON SI AND DOES NOT REQUIRE A SITTER. PT IS ON ROOM AIR. DOES NOT HAVE IV. PT IS ON COMFORT CARE. 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 PT IS INCONTINENT OF BOWEL. PT HAD SEVERAL EPISODES OF CONFUSION THROUGH THE NIGHT BUT WAS RE-DIRECTABLE WITH STAFF, PT WAS MADE COMFORTABLE WITH MEDICATION AND POSITION CHANGES. CM IS WORKING ON DISCHARGE PLAN. CALL LIGHT WITHIN REACH, RAILS TIMES 2, BED IN LOW POSITION.
--- NOTE | 2025-07-01 17:23 | NUR ---
SHIFT SUMMARY PT APPEARED TO REST COMFORTABLY UNTIL THE AFTERNOON. PT'S PAIN AND ANXIETY MEDICATED PER EMAR. PT CONT TO BE IMPULSIVE, ATTEMPT TO GET OOB UNSAFELY AND CALL OUT. BED ALARM ON FOR SAFETY. CALL LIGHT WITHIN REACH.
--- NOTE | 2025-07-02 05:07 | NUR ---
PT A&OX2, KNOWS SHE IS IN [place] BUT BELIEVES SHE IS AT THE DENTIST OFFICE. UNABEL TO REDIRECT PT, PT HAS DIFFICULTY WITH FOLLOWING DIRECTIONS.
--- NOTE | 2025-07-02 18:13 | NUR ---
SHIFT SUMMARY A/O TO SELF AND FAMILY, PLEASANTLY CONFUSED. IMPULSIVE AT TIMES. COMFORT CARE MEASURES IN PLACED, MEDICATED FOR PAIN AND ANXIETY PRN. FAMILY VISITING AT BEDSIDE T/O THE DAY
--- NOTE | 2025-07-03 05:57 | NUR ---
PT A&OX1, C/0 PAIN IN THROAT T/O SHIFT MEDICATION GIVEN RX. PT SLEPT AT TIMES AND RESTLESS AT OTHERS.
--- NOTE | 2025-07-03 16:49 | NUR ---
PT AOX1 AND HAS BEEN COOPERATIVE OF CARE. PT HAS INCONTINENCE, BUT WILL AT TIMES REQUEST TO USE COMMODE. PT WAS A 1-2 PERSON WITH WALKER TO COMMODE. PT TREATED FOR PAIN PER EMAR. PT RESTING CURRENTLY BED ALARM IN PLACE AND CALL LIGHT IN REACH. PT CAN BE IMPULSIVE, BUT IS REDIRECTABLE.
--- NOTE | 2025-07-04 04:44 | NUR ---
NO ACUTE CHANGED DURING SHIFT. PATIENT IS ALERT AND ORIENTED X1, BUT REDIRECTABLE. PATIENT IS A 1-2 ASSIST TO BSC. PATIENT MEDICATED FOR ANXIETY AND PAIN-SEE EMAR. BED IS IN LOW POSITION WITH THE WHEELS LOCKED. BED ALARM ON. CALL LIGHT WITHIN REACH
[2025-07-04] MEDS ORDERED: Nystatin 100,000 Unit/ML Susp 5 ML UDC MT SCH (13:00)
[2025-07-04] MEDS ORDERED: Nystatin 100,000 Unit/ML Susp 5 ML UDC SS SCH (14:00)
--- NOTE | 2025-07-04 17:57 | NUR ---
NO ACUTE CHANGES PT AOX1 AND IMPULSIVE. PT TREATED FOR PAIN AND ANXIETY PER EMAR. PT HAS BEEN BUSY TOWARDS THE END OF SHIFT, BUT IS REDIRECTABLE AND MOST OF THE TIME CAN MAKE NEEDS KNOWN. BED ALARM IS IN PLACE.
--- NOTE | 2025-07-05 02:48 | NUR ---
SHIFT SUMMARY PT IS AOX1. PT IS IMPULSIVE BUT REDIRECTABLE. BED ALARM SET FOR SAFETY. PT IS ABLE TO REPOSITIONED THEMSELVES. NO ACUTE CHANGES THIS SHIFT. PT SLEPT THROUGHT OUT NIGHT.
--- NOTE | 2025-07-05 17:22 | NUR ---
PATIENT AWAITING HOSPICE PLACEMENT. PATIENT REFUSED ALL MEALS TODAY AND ONLY HAD SIPS OF WATER. VERY RESTLESS THIS AFTERNOON AND REPORTS 10/10 PAIN TO ABDOMEN. MEDICATED WITH ROXANOL AND ATIVAN WITH GOOD RELIEF. FALL PRECAUTIONS IN PLACE.
--- NOTE | 2025-07-06 03:28 | NUR ---
SHIFT SUMMARY: PT ALERT TO SELF ONLY. COMFORT MEASURES IN PLACE. PT CONFUSED AND IMPULSIVE AT TIMES THROUGH OUT THE NIGHT. COMFORT MEASURES IN PLACE.
--- NOTE | 2025-07-06 13:19 | NUR ---
CALLED REPORT TO [facility] IN [place]. PT WILL BE DISCHARGING THERE ONCE SHE LEAVES THE HOSPITAL VIA MEDICAL TRANSPORT. NO FURTHER QUESTIONS AT THE TIME OF REPORT. PT HAS HOSPICE ADMIT PLANNED FOR WEDNESDAY PER CARE MANAGEMENT.
--- NOTE | 2025-07-06 14:54 | NUR ---
PT WAS DISCHARGED TO [facility] IN [place]. PHONE REPORT COMPLETED WITH STAFF THERE. HARD COPY SCRIPTS PROVIDED FOR PT CC MEDS. PT MEDICATED WITH ROXINOL AND ATIVAN COMBO JUST PRIOR TO DISCHARGE. PT TAKEN VIA GURNEY TRANSPORT. NO S&S OF DISTRESS NOTED AT THE TIME OF DISCHARGE.
== END 2025-07-06 14:37 | disposition hospice, inpatient (51) ==
LOC: ER 19:10 → MEDS 19:11 → ENPENDDIS 07-06 10:37 → MEDS 07-06 14:37
PROVIDERS: Emergency Medicine; ADMIT Student in an Organized Health Care Education/Training Program
DX: G30.9 Alzheimer's disease, unspecified (principal); F02.811 Dementia in other diseases classified elsewhere, unspecified severity, with agitation; C34.90 Malignant neoplasm of unspecified part of unspecified bronchus or lung; C78.7 Secondary malignant neoplasm of liver and intrahepatic bile duct; C78.6 Secondary malignant neoplasm of retroperitoneum and peritoneum; E87.1 Hypo-osmolality and hyponatremia; E03.9 Hypothyroidism, unspecified; E78.00 Pure hypercholesterolemia, unspecified; K21.9 Gastro-esophageal reflux disease without esophagitis; I10 Essential (primary) hypertension; Z79.890 Hormone replacement therapy; Z79.899 Other long term (current) drug therapy; Z88.0 Allergy status to penicillin; Z88.5 Allergy status to narcotic agent; Z90.49 Acquired absence of other specified parts of digestive tract; Z90.710 Acquired absence of both cervix and uterus; R45.6 Violent behavior; Z66 Do not resuscitate
CPT/HCPCS: 80053; 81001; 82140; 83735; 84100; 84443; 85025; 90471; 90715; 99285; A9270; G0378